=== PATIENT | female | born 1955 | race Caucasian/White ===

== ENCOUNTER → 2023-12-11 10:04 | Outpatient (REF) | payer MEDICARE, SELFPAY ==
[2023-12-11 11:17] LABS: % Basophils 0.7 % (0-2); % Eosinophils 1.7 % (0-6); % Immature Granulocytes 0.6 % (0-0.5); % Monocytes 6.1 % (1.7-9.3); % Neutrophils 76.9 % (42.2-75.2); Absolute Basophils 0.1 10^3/uL (0-0.2); Absolute Eosinophils 0.1 10^3/uL (0-0.7); Absolute Immature Granulocytes 0.1 10^3/uL (0-0.05); Absolute Lymphocytes 1.2 10^3/uL (1.2-3.4); Absolute Monocytes 0.5 10^3/uL (0.1-0.6); Absolute Neutrophils 6.4 10^3/uL (1.4-6.5); Hematocrit 36.6 % (37.0-47.0); Hemoglobin 11.9 g/dL (12.0-16.0); Mean Corp Hgb Conc. 32.5 g/dL (33.0-37.0); Mean Corpuscular Hgb 26.4 pg (27.0-31.0); Mean Corpuscular Volume 81.3 fL (81.0-99.0); Mean Platelet Volume 8.4 fL (7.4-10.4); Nucleated Red Blood Cells % 0 %; Platelet Count 403 10^3/uL (130-400); Red Cell Dist. Width 14.6 % (11.5-14.5); White Blood Cell Count 8.3 10^3/uL (4.8-10.8)
[2023-12-11 11:56] LABS: ALT (SGPT) 23 U/L (0-35); AST (SGOT) 29 U/L (14-36); Albumin 4.2 g/dl (3.5-5.0); Alkaline Phosphatase 89 U/L (38-126); Blood Urea Nitrogen 23 mg/dl (7-17); Calcium 9.6 mg/dl (8.4-10.2); Carbon Dioxide 25 mmol/L (22-30); Chloride 102 mmol/L (98-107); Glucose 75 mg/dl (70-99); Potassium 4.5 mmol/L (3.5-5.1); Sodium 138 mmol/L (135-145); Total Bilirubin 0.3 mg/dl (0.2-1.3); Total Protein 6.9 g/dl (6.3-8.2); eGFR > 60.00
[2023-12-11 12:02] LABS: Erythrocyte Sed Rate 40 mm/hour (0-20)
== END ==
LOC: REG 10:04
PROVIDERS: ATTENDING PHYSICIAN Internal Medicine Rheumatology; FAMILY PHYSICIAN Internal Medicine
DX: E55.9 Vitamin D deficiency, unspecified (principal); M19.011 Primary osteoarthritis, right shoulder; M19.041 Primary osteoarthritis, right hand; M43.22 Fusion of spine, cervical region; M51.36 Other intervertebral disc degeneration, lumbar region; M81.0 Age-related osteoporosis without current pathological fracture; M89.49 Other hypertrophic osteoarthropathy, multiple sites; Z51.81 Encounter for therapeutic drug level monitoring
CPT/HCPCS: 36415; 80053; 85025; 85652; 86140

== ENCOUNTER → 2024-01-22 09:48 | Outpatient (REF) | payer MEDICARE, SELFPAY ==
[2024-01-22 10:37] LABS: Hematocrit 35.5 % (37.0-47.0); Hemoglobin 11.7 g/dL (12.0-16.0); Mean Corpuscular Hgb 27.4 pg (27.0-31.0); Mean Corpuscular Volume 83.1 fL (81.0-99.0); Mean Platelet Volume 8.2 fL (7.4-10.4); Platelet Count 339 10^3/uL (130-400); Red Blood Cell Count 4.27 10^6/uL (4.20-5.40); Red Cell Dist. Width 14.7 % (11.5-14.5); White Blood Cell Count 6.9 10^3/uL (4.8-10.8)
[2024-01-22 11:11] LABS: % Eosinophils 4.8 % (0-6); % Immature Granulocytes 0.4 % (0-0.5); % Lymphocytes 28.6 % (20.5-51.1); % Monocytes 11.5 % (1.7-9.3); % Neutrophils 53.7 % (42.2-75.2); Absolute Basophils 0.1 10^3/uL (0-0.2); Absolute Eosinophils 0.3 10^3/uL (0-0.7); Absolute Monocytes 0.8 10^3/uL (0.1-0.6); Absolute Neutrophils 3.7 10^3/uL (1.4-6.5); Nucleated Red Blood Cells % 0 %
[2024-01-22 11:26] LABS: ALT (SGPT) 23 U/L (0-35); AST (SGOT) 30 U/L (14-36); Albumin 4.1 g/dl (3.5-5.0); Alkaline Phosphatase 84 U/L (38-126); Blood Urea Nitrogen 25 mg/dl (7-17); Calcium 9.7 mg/dl (8.4-10.2); Carbon Dioxide 26 mmol/L (22-30); Chloride 101 mmol/L (98-107); Glucose 76 mg/dl (70-99); HDL Cholesterol 81 mg/dl; LDL Cholesterol, Calculated 136 mg/dl; Potassium 4.8 mmol/L (3.5-5.1); Sodium 135 mmol/L (135-145); Total Bilirubin 0.4 mg/dl (0.2-1.3); Total Cholesterol 232 mg/dl (50-199); Total Protein 6.7 g/dl (6.3-8.2); Triglyceride 75 mg/dl (10-149); Very Low Density Lipoprotein 15 mg/dl (0-30); eGFR > 60.00
[2024-01-22 11:56] LABS: TSH Reflex To Free T4 2.33 uIU/ml (0.47-4.68)
== END ==
LOC: REG 09:48
PROVIDERS: ATTENDING PHYSICIAN Internal Medicine
DX: I10 Essential (primary) hypertension (principal); E87.1 Hypo-osmolality and hyponatremia; N17.9 Acute kidney failure, unspecified
CPT/HCPCS: 36415; 80053; 80061; 84443; 85025

== ENCOUNTER → 2024-02-05 10:06 | Outpatient (REF) | payer MEDICARE, SELFPAY | LOC: HWRAD 10:06 | PROVIDERS: ATTENDING PHYSICIAN Nurse Practitioner Adult Health; FAMILY PHYSICIAN Internal Medicine; REFERRING PHYSICIAN Internal Medicine Critical Care Medicine | DX: R91.1 Solitary pulmonary nodule (principal) | CPT/HCPCS: 71250 ==

== ENCOUNTER → 2024-04-11 09:47 | Outpatient (REF) | payer MEDICARE, SELFPAY | LOC: RAD 09:47 | PROVIDERS: ATTENDING PHYSICIAN Nurse Practitioner Family; FAMILY PHYSICIAN Internal Medicine | DX: R05.3 Chronic cough (principal) | CPT/HCPCS: 71046 ==

== ENCOUNTER → 2024-08-03 10:15 | Outpatient (REF) | payer MEDICARE, SELFPAY ==
[2024-08-03 11:18] LABS: % Basophils 0.8 % (0-2); % Eosinophils 4.3 % (0-6); % Immature Granulocytes 0.5 % (0-0.5); % Lymphocytes 21.9 % (20.5-51.1); % Monocytes 8.1 % (1.7-9.3); % Neutrophils 64.4 % (42.2-75.2); Absolute Basophils 0.1 10^3/uL (0-0.2); Absolute Eosinophils 0.3 10^3/uL (0-0.7); Absolute Lymphocytes 1.6 10^3/uL (1.2-3.4); Absolute Monocytes 0.6 10^3/uL (0.1-0.6); Absolute Neutrophils 4.8 10^3/uL (1.4-6.5); Hematocrit 39.8 % (37.0-47.0); Hemoglobin 12.8 g/dL (12.0-16.0); Mean Corp Hgb Conc. 32.2 g/dL (33.0-37.0); Mean Corpuscular Hgb 27.7 pg (27.0-31.0); Mean Corpuscular Volume 86.1 fL (81.0-99.0); Mean Platelet Volume 8.4 fL (7.4-10.4); Nucleated Red Blood Cells % 0 %; Platelet Count 412 10^3/uL (130-400); Red Blood Cell Count 4.62 10^6/uL (4.20-5.40); Red Cell Dist. Width 13.8 % (11.5-14.5); White Blood Cell Count 7.5 10^3/uL (4.8-10.8)
[2024-08-03 11:54] LABS: ALT (SGPT) 23 U/L (0-35); AST (SGOT) 26 U/L (14-36); Albumin 4.4 g/dl (3.5-5.0); Alkaline Phosphatase 87 U/L (38-126); Blood Urea Nitrogen 22 mg/dl (7-17); Calcium 9.9 mg/dl (8.4-10.2); Carbon Dioxide 28 mmol/L (22-30); Chloride 100 mmol/L (98-107); Glucose 79 mg/dl (70-99); Potassium 4.1 mmol/L (3.5-5.1); Sodium 138 mmol/L (135-145); Total Bilirubin 0.7 mg/dl (0.2-1.3); Total Protein 7.2 g/dl (6.3-8.2); eGFR > 60.00
[2024-08-03 14:19] LABS: Erythrocyte Sed Rate 23 mm/hour (0-20)
== END ==
LOC: RAD 10:15
PROVIDERS: ATTENDING PHYSICIAN Physician Assistant; FAMILY PHYSICIAN Internal Medicine
DX: M25.511 Pain in right shoulder (principal); M81.0 Age-related osteoporosis without current pathological fracture; M89.49 Other hypertrophic osteoarthropathy, multiple sites; Z51.81 Encounter for therapeutic drug level monitoring
CPT/HCPCS: 36415; 73030; 80053; 85025; 85652; 86140

== ENCOUNTER 2024-09-24 12:38 | Inpatient (IN) | payer MEDICARE, SELFPAY ==
[2024-09-24] VITALS (8 sets, daily range): BP systolic 79–124; BP diastolic 34–85; BMI 23.9; BMI 25.2
--- NOTE | 2024-09-24 11:03 | ED.GENMED ---
History of Present Illness
General
Chief Complaint: Change in Mental Status
Time Seen by Provider: 09/24/24 10:59
History of Present Illness
History of Present Illness:
68-year-old female with history of asthma, depression, hypertension presenting to the emergency department for concern of confusion. Patient lives self, however was talking to her sister over the phone, who voiced concerns that she seemed confused
and said that she sounded like her lips were very dry. Patient does note cough for the past few days, nonproductive. Denies any chest pain, does note some mild dyspnea. Denies any known sick contacts. Denies abdominal pain or vomiting. Denies
urinary complaints. Patient herself reports that she does not feel right. Denies any fall or trauma. Denies additional acute medical complaints
Past History
Past History
ED Past Medical History: Asthma, HTN, Hypercholesterolemia, Psychiatric (Depression, anxiety), Other (hypogammaglobulinemia) and Other (Sarcoidosis)
ED Past Surgical History: Orthopedic (cervical fusion) and Other (Mediastinoscopy)
Social History
Tobacco: Non-smoker
Alcohol: None
Drug: None
Personal:
Living: alone
Employment: Employed (Nurse)
Phy Exam
Physical Exam
Physical Exam:
General: No acute distress, dry mucous membranes
HEENT: protecting airway
Neck: appears supple
CV: Tachycardic, regular rhythm, no evidence of cyanosis
Resp: No accessory muscle use, active cough, rhonchorous breath sounds
Abd: Soft and non-distended, no tenderness to palpation
Extremities: No deformities, no swelling
Neuro: alert, no focal neurologic deficit. Tremulous
: deferred
Rectal: deferred
Psych: Normal affect
Skin: Intact
Course
Orders/Labs/Results
Orders:
Orders
09/24/24 10:56
Electrocardiogram (*1) Urgent
Reason for Study: Chest Pain
Cardiac Monitoring- Treatment ONCE
EKG- Treatment ONCE
O2 Therapy [RESP] Urgent
Titrate/Wean O2 to maintain O2 sat greater than (%): 90
Special Instructions: Maintain sats >/=90%
Pulse Ox/spot Check [RESP] Urgent
Quantity: 1
Special Instructions: ON ROOM AIR
09/24/24 11:00
0.9% Sodium Chloride 1000 ml [Nss] 1,000 ml IV BOLUS
09/24/24 11:01
CT Head W/o Iv Contrast Urgent
Comment:
Reason For Exam: change in mental
09/24/24 11:04
COVID-19 Antigen Urgent
Source: Nasal Swab
Complete Blood Count/With Diff Urgent
Comprehensive Metabolic Panel Urgent
Lactic Acid Urgent
Blood Culture Q30M
INNA Source: Blood/Venous
Specimen Description:
Blood Culture Q30M
INNA Source: Blood/Venous
Specimen Description:
Influenza A+B Rapid Molecular Urgent
INNA Source: Nasal Swab
Specimen Description:
09/24/24 11:05
CR Chest - 2 Views Urgent
Comment:
Reason For Exam: cough and fever
09/24/24 11:20
Urinalysis Reflex To Culture Urgent
Abnormal Lab Results
09/24/24
11:04
WBC 17.3 H 10^3/uL
(4.8-10.8)
RBC 3.98 L 10^6/uL
(4.20-5.40)
Hgb 10.8 L g/dL
(12.0-16.0)
Hct 32.5 L %
(37.0-47.0)
Plt Count 621 H 10^3/uL
(130-400)
Abs Immat Gran (auto) 0.5 H 10^3/uL
(0-0.05)
Absolute Neuts (auto) 14.7 H 10^3/uL
(1.4-6.5)
Absolute Lymphs (auto) 0.7 L 10^3/uL
(1.2-3.4)
Absolute Monos (auto) 1.3 H 10^3/uL
(0.1-0.6)
Immature Gran % 2.8 H %
(0-0.5)
Neutrophils % 84.9 H %
(42.2-75.2)
Lymphocytes % 4.3 L %
(20.5-51.1)
Sodium 132 L mmol/L
(135-145)
Chloride 94 L mmol/L
(98-107)
Glucose 161 H mg/dl
(70-99)
Calcium 8.2 L mg/dl
(8.4-10.2)
Alkaline Phosphatase 285 H U/L
(38-126)
Total Protein 5.9 L g/dl
(6.3-8.2)
Albumin 3.3 L g/dl
(3.5-5.0)
09/24/24 11:04
09/24/24 11:04
Vital Signs
Initial and Last Documented VS:
Initial Vital Signs
Temp
100.0 F
09/24/24 10:57
Last Documented Vital Signs
Temp Pulse Resp BP Pulse Ox
100.0 F 103 33 102/68 95
09/24/24 10:57 09/24/24 11:15 09/24/24 11:30 09/24/24 11:01 09/24/24 11:15
MDM/Problems Addressed
MDM/Problems Addressed:
68-year-old female with history of anxiety, depression, asthma, hypertension presenting for concern of confusion and cough with dryness to mouth. Vital signs are significant for fever, tachycardia, low blood pressure.
On exam patient is resting comfortably, no acute distress. Patient does appear very dry however and vital signs are meeting criteria for SIRS. Suspect underlying infection. Given patient's cough, possible COVID versus flu versus pneumonia. Will
plan for labs including lactic acid, blood cultures. Will obtain viral swabs and chest x-ray imaging. Patient also has some unintentional tremors. Per sister, has been more confused. This reason we will obtain CT brain imaging, however at this
time ultimately suspect metabolic component to confusion. Starting patient on IV fluids. Tylenol administered for fever
11:55 -patient's chest x-ray is consistent with a right-sided pneumonia. Viral swabs are negative. CT brain is negative. At this time suspect sepsis from pulmonary process. Blood pressure remained stable, normal lactic acid without concern for
septic shock. Starting antibiotics for community-acquired pneumonia plan for admission
*EKG
Interpreted by ED Provider?: Yes
EKG Intrepretation Date: 09/24/24
EKG Intrepretation Time: 11:08
Interpretation: abnormal
Heart Rate: 107
Rate: tachycardiac
Rhythm: sinus
[place]: normal axis
Interval: normal interval
QRS Pattern: normal QRS
Ischemia: no ischemia
*Critical Care Note
Total Time (30-74mins, 75-104mins- exclusive of procedures): Not Applicable
ED Attending Note
-
Portions of this chart may have been created with voice recognition software.� Occasional wrong word or��sound alike� substitutions may have occurred due to the inherent limitations of voice recognition software.
Discharge Plan
Departure
Prescriptions:
No Action
omeprazole 20 MG tablet,disintegrat, delay rel
20 mg PO DAILY
fluticasone furoate [Arnuity Ellipta] 200 MCG blister with device
1 puff IH R DAILY
doxepin 10 MG capsule
30 mg PO HS
duloxetine 60 MG capsule,delayed release(DR/EC)
60 mg PO BID
tramadol 50 MG tablet
50 mg PO Q4HPRN PRN (Reason: mild pain)
Patient Comments:
patient lasted picked up on 05/11/2020 #180
prednisone 5 MG tablet
5 mg PO DAILY
polyvinyl alcohol-povidon(PF) [Refresh Classic (PF)] 10 DROPS dropperette
1 drp BOTH EYES TIDPRN PRN (Reason: dry eyes)
acetaminophen 325 MG tablet
650 mg PO Q4HPRN PRN (Reason: low back pain from surgery)
cholecalciferol (vitamin D3) [Vitamin D3] 25 MCG tablet,chewable
1,000 unit PO DAILY
turmeric root extract 500 MG capsule
500 mg PO DAILY
kglstlov-htd-keeod acid-lutein 1 EACH tablet,chewable
1 tab PO DAILY
Bacillus coagulans [Probiotic (B. coagulans)] 1 EACH tablet,chewable
1 tab PO DAILY
clonazepam 1 MG tablet
1 mg PO TID@1100,1500,2000 Qty: 30 0RF
Referrals:
Emily Sotelo MD [Family Provider] -
Interventions
Interventions:
*Risk Screen - Suicide Last Done: 09/24/24 10:59
*General Assessment Last Done: 09/24/24 10:58
*Neglect/Abuse Screening Last Done: 09/24/24 10:59
*ED COVID-19 Vaccine History Last Done: 09/24/24 10:58
Discharge Date and Time
Print Language: WELSH
[2024-09-24] MEDS: NSS 1000 IV ×2 (11:07→17:35)
[2024-09-24 11:20] LABS: % Basophils 0.5 % (0-2); % Eosinophils 0.2 % (0-6); % Immature Granulocytes 2.8 % (0-0.5); % Lymphocytes 4.3 % (20.5-51.1); % Monocytes 7.3 % (1.7-9.3); % Neutrophils 84.9 % (42.2-75.2); Absolute Basophils 0.1 10^3/uL (0-0.2); Absolute Immature Granulocytes 0.5 10^3/uL (0-0.05); Absolute Lymphocytes 0.7 10^3/uL (1.2-3.4); Absolute Monocytes 1.3 10^3/uL (0.1-0.6); Absolute Neutrophils 14.7 10^3/uL (1.4-6.5); Hematocrit 32.5 % (37.0-47.0); Hemoglobin 10.8 g/dL (12.0-16.0); Mean Corp Hgb Conc. 33.2 g/dL (33.0-37.0); Mean Corpuscular Hgb 27.1 pg (27.0-31.0); Mean Corpuscular Volume 81.7 fL (81.0-99.0); Mean Platelet Volume 8.2 fL (7.4-10.4); Nucleated Red Blood Cells % 0 %; Platelet Count 621 10^3/uL (130-400); Red Blood Cell Count 3.98 10^6/uL (4.20-5.40); Red Cell Dist. Width 14.4 % (11.5-14.5); White Blood Cell Count 17.3 10^3/uL (4.8-10.8)
[2024-09-24 11:30] LABS: COVID-19 Antigen Negative (Negative)
[2024-09-24 11:31] LABS: Lactic Acid 1.2 mmol/L (0.7-2.0)
[2024-09-24 11:33] LABS: ALT (SGPT) 18 U/L (0-35); AST (SGOT) 19 U/L (14-36); Albumin 3.3 g/dl (3.5-5.0); Alkaline Phosphatase 285 U/L (38-126); Blood Urea Nitrogen 14 mg/dl (7-17); Calcium 8.2 mg/dl (8.4-10.2); Carbon Dioxide 27 mmol/L (22-30); Chloride 94 mmol/L (98-107); Estimated Creatinine Clearance 67 ml/min; Glucose 161 mg/dl (70-99); Potassium 3.7 mmol/L (3.5-5.1); Sodium 132 mmol/L (135-145); Total Bilirubin 0.5 mg/dl (0.2-1.3); Total Protein 5.9 g/dl (6.3-8.2); eGFR > 60.00
--- NOTE | 2024-09-24 12:19 | HPS.HSE ---
Addendum entered and electronically signed by Naveed Wagner MD 09/24/24 16:23:
Patient with bad sounding lungs as per RN. changed Mucinex to Robitussin DM. Added dexamethasone 4 mg every 12.
Original Note:
Family Physician
-
Family Physician: Emily Sotelo
Chief Complaint
-
cough
History of Present Illness
68-year-old female past medical history of sarcoidosis, cough variant asthma, hypertension, anxiety, chronic back pain, presenting with confusion. Patient lives by herself and was talking to her sister and patient was concerned that she seemed
confused and her lips were dry. She has cough for the past few days which is productive and chills. Denies chest pain. Has pain in her back with cough. Has some shortness of breath. Denies sick contacts. Denies abdominal pain or vomiting or
diarrhea.
She denies smoking or alcohol use.
Medical History
Past Medical History
Past Medical History: Reports Other (sarcoidosis, cough variant asthma, hypertension, anxiety, chronic back pain)
Past Surgical History: Reports None
Social History
Tobacco: Non-smoker
Alcohol: None
Drug: None
Family History
Family History: Not pertinent
Allergies / Home Medications
Allergies reflects when Allergies were last updated in [facility].
Home Medications with original date entered in [facility]
Allergy/Medication List:
Allergies
Allergy/AdvReac Type Severity Reaction Status Date / Time
amoxicillin trihydrate Allergy NAUSEA,VOMITTING, Verified 04/30/17 09:31
[From Augmentin] GI distress
azithromycin Allergy GI Verified 04/30/17 09:31
DISTRESS,
GI distress
ibuprofen Allergy GI distress Verified 04/30/17 09:31
levofloxacin Allergy GI UPSET Verified 04/30/17 09:31
naproxen Allergy Gi distress Verified 04/30/17 09:31
oxycodone HCl [From Percocet] Allergy NAUSEA,VOMITTING, Verified 04/30/17 09:31
GI distress
potassium clavulanate Allergy Nausea , Verified 04/30/17 09:31
[From Augmentin] vomiting,
GI distress
Sulfa (Sulfonamide Allergy Nausea / Verified 04/30/17 09:31
Antibiotics) Vomiting
CLAVULANIC ACID Allergy NAUSEA,STOMACH Uncoded 04/30/17 09:31
PAIN
seasonal Allergy chest Uncoded 04/30/17 09:31
tightness
and
coughing
Home Medications
omeprazole 20 mg delayed release,disintegrating tablet 20 mg PO DAILY Gastrointestinal issue 04/30/17
Bacillus coagulans 250 million cell chewable tablet (Probiotic (B. coagulans)) 1 tab PO DAILY Supplement 06/12/20
acetaminophen 325 mg tablet 650 mg PO Q4HPRN PRN low back pain from surgery 06/12/20
cholecalciferol (vitamin D3) 25 mcg (1,000 unit) chewable tablet (Vitamin D3) 1,000 unit PO DAILY Supplement 06/12/20
doxepin 10 mg capsule 30 mg PO HS Mental Health/Anxiety 06/12/20
duloxetine 60 mg capsule,delayed release 60 mg PO BID Mental Health/Anxiety 06/12/20
fluticasone furoate 200 mcg/actuation blister powder for inhalation (Arnuity Ellipta) 1 puff IH R DAILY ASTHMA 06/12/20
xsozwevbvajg-ghpk-meqmv acid 200 mcg-lutein 137.5 mcg chewable tablet 1 tab PO DAILY Supplement 06/12/20
polyvinyl alcohol-povidone (PF) 1.4 %-0.6 % eye drops in a dropperette (Refresh Classic (PF)) 1 drp BOTH EYES TIDPRN PRN dry eyes 06/12/20
prednisone 5 mg tablet 5 mg PO DAILY INFLAMMATION 06/12/20
tramadol 50 mg tablet 50 mg PO Q4HPRN PRN mild pain 06/12/20
turmeric root extract 500 mg capsule 500 mg PO DAILY Supplement 06/12/20
clonazepam 1 mg tablet 1 mg PO TID@1100,1500,2000 #30 tabs 06/14/20
Review of Systems
-
History Source: Patient
A 12 point ROS was completed and negative except as noted: Yes
Constitutional: Reports No Symptoms
EENT: Reports No Symptoms
Respiratory: Reports See HPI
Cardiac: Reports No Symptoms
Abdomen/GI: Reports No Symptoms
: Reports No Symptoms
Musculoskeletal: Reports No Symptoms
Skin: Reports No Symptoms
Neurological: Reports No Symptoms
Endocrine: Reports No Symptoms
Hematologic/Lymphatic: Reports No Symptoms
Psych: Reports No Symptoms
Physical Exam
Vital Signs
Vital Signs
Temp Pulse Resp BP Pulse Ox
100.0 F 103 33 102/68 95
09/24/24 10:57 09/24/24 11:15 09/24/24 11:30 09/24/24 11:01 09/24/24 11:15
Physical Exam
General: Well Developed, Well Nourished and No Apparent Distress
HEENT: NormoCephalic, Moist mucous membranes and Atraumatic
Respiratory: Other (-Rhonchi right lower lobe)
Cardiac: S1/S2 and Regular Rhythm; No Murmur or Rub
GI: Soft, Non Tender, Non Distended and Normal Bowel Sounds; No Organomegaly
Rectal: Deferred by Provider
Musculoskeletal: No Clubbing, No Cyanosis and No Edema
Skin: No Rash
Neuro: Nonfocal/grossly intact
Laboratory Results
-
09/24/24 11:04
09/24/24 11:04
Laboratory Results
Lactic Acid 1.2 mmol/L (0.7-2.0) 09/24/24 11:04
Total Bilirubin 0.5 mg/dl (0.2-1.3) 09/24/24 11:04
AST 19 U/L (14-36) 09/24/24 11:04
ALT 18 U/L (0-35) 09/24/24 11:04
Alkaline Phosphatase 285 U/L (38-126) H 09/24/24 11:04
Data Reviewed
-
Lab Data: Labs Reviewed by me
Old Records: Reviewed
Impression/Plan
-
IMPRESSION:
PLAN:
# Sepsis (leukocytosis, tachycardia) secondary to right basilar pneumonia
-Patient initially hypotensive 79/59
- Temperature of 100
-COVID and flu negative
-Chest x-ray shows right basilar pneumonia, some possible small right pleural effusion
-Check sputum culture
- Blood cultures pending
- IV fluids
- Ceftriaxone/doxycycline
- Mucinex
#Cough variant asthma
-Rhonchi right lower lobe
- Patient takes long-acting inhaler and albuterol as needed
- DuoNebs as needed every 6 hours
-may need further steroids if no full response to ABx
Sarcoidosis
- Continue prednisone
Essential hypertension
Anxiety
- Continue duloxetine, doxepin, clonazepam
Chronic back pain
- Continue tramadol
Full code
DVT prophylaxis�heparin
Regular diet
[2024-09-24] MEDS: VIBRAMYCIN 100 MG PO ×2 (12:25→20:19)
[2024-09-24] MEDS: ROCEPHIN 1000 MG IV (12:26)
[2024-09-24] MEDS: DUONEB 3 ML INH ×2 (16:08→19:11)
[2024-09-24] MEDS: KLONOPIN 0.5 MG PO (17:22)
[2024-09-24] MEDS: ROBITUSSIN DM 10 ML PO (17:22)
[2024-09-24] MEDS: DECADRON 4 MG IV (17:35)
[2024-09-24] MEDS: ADVAIR HFA 115/21 MCG INHALER 2 PUFF INH (19:08)
[2024-09-24] MEDS: HEPARIN 5000 UNITS SC (20:19)
[2024-09-24] MEDS: CYMBALTA DELAYED RELEASE 60 MG PO (20:19)
--- NOTE | 2024-09-24 20:43 | W.PN.UPDATE ---
Update Note
Progress Note Update
As per daughter patient apparently allergic to dexamethasone because she developed renal failure from it 4 years ago. Patient without any allergic reaction and actually feeling better on dexamethasone given. Will change dexamethasone to
methylprednisolone.
Daughter was also concerned that patient has been using her Klonopin too often has episodes of forgetting how her house got so messy. Patient also forgetting what she is talking about during conversation with her as per nurse.
Holding Klonopin and as needed Flexeril.
[2024-09-25] MEDS: NSS 1000 IV ×3 (02:36→20:47)
[2024-09-25] MEDS: ROBITUSSIN DM 10 ML PO ×3 (02:36→18:19)
[2024-09-25 07:05] VITALS: BP 109/65
[2024-09-25 07:17] LABS: % Basophils 0.2 % (0-2); % Immature Granulocytes 2.4 % (0-0.5); % Lymphocytes 4.1 % (20.5-51.1); % Monocytes 2.8 % (1.7-9.3); % Neutrophils 90.5 % (42.2-75.2); Absolute Immature Granulocytes 0.4 10^3/uL (0-0.05); Absolute Lymphocytes 0.6 10^3/uL (1.2-3.4); Absolute Monocytes 0.4 10^3/uL (0.1-0.6); Absolute Neutrophils 13.8 10^3/uL (1.4-6.5); Hematocrit 28.2 % (37.0-47.0); Hemoglobin 9.4 g/dL (12.0-16.0); Mean Corp Hgb Conc. 33.3 g/dL (33.0-37.0); Mean Corpuscular Hgb 27.5 pg (27.0-31.0); Mean Corpuscular Volume 82.5 fL (81.0-99.0); Mean Platelet Volume 8.7 fL (7.4-10.4); Nucleated Red Blood Cells % 0 %; Platelet Count 661 10^3/uL (130-400); Red Blood Cell Count 3.42 10^6/uL (4.20-5.40); Red Cell Dist. Width 14.5 % (11.5-14.5); White Blood Cell Count 15.2 10^3/uL (4.8-10.8)
[2024-09-25] MEDS: DUONEB 3 ML INH (07:32)
[2024-09-25] MEDS: ADVAIR HFA 115/21 MCG INHALER 2 PUFF INH ×2 (07:33→19:43)
[2024-09-25 07:48] LABS: ALT (SGPT) 17 U/L (0-35); AST (SGOT) 18 U/L (14-36); Albumin 2.9 g/dl (3.5-5.0); Alkaline Phosphatase 244 U/L (38-126); Blood Urea Nitrogen 12 mg/dl (7-17); Calcium 7.7 mg/dl (8.4-10.2); Carbon Dioxide 24 mmol/L (22-30); Chloride 101 mmol/L (98-107); Estimated Creatinine Clearance 72 ml/min; Glucose 159 mg/dl (70-99); Potassium 4.5 mmol/L (3.5-5.1); Sodium 136 mmol/L (135-145); Total Bilirubin 0.4 mg/dl (0.2-1.3); Total Protein 5.3 g/dl (6.3-8.2); eGFR > 60.00
[2024-09-25] MEDS: VITAMIN D3 (cholecalciferol) 25 MCG PO (08:28)
[2024-09-25] MEDS: VIBRAMYCIN 100 MG PO ×2 (08:28→20:35)
[2024-09-25] MEDS: HEPARIN 5000 UNITS SC ×2 (08:29→20:36)
[2024-09-25] MEDS: CYMBALTA DELAYED RELEASE 60 MG PO ×2 (08:31→20:35)
[2024-09-25] MEDS: SOLU-MEDROL PF 40 MG IV ×2 (08:31→20:42)
--- NOTE | 2024-09-25 10:41 | W.PN.HOSP.TC ---
Today's Communication/Plan
-
cont abx
cont IVF
add tessalon
consider pulm consult
Assessment / Plan
Assessment / Plan
pt is a 68 year old female
Sepsis (leukocytosis, tachycardia) POA-- due to right basilar pneumonia--with hypotension (79/59 on admission) responded to IVF (current BP 109/65)--COVID and flu negative--Chest x-ray shows right basilar pneumonia, some possible small right pleural
effusion--if able, check sputum culture--consider pulm consult--cont IVF/ceftriaxone/doxy/medrol --cough meds
Cough variant asthma--Rhonchi right lower lobe--Patient takes long-acting inhaler and albuterol as needed--DuoNebs as needed every 6 hours
Sarcoidosis--prednisone on hold, methylprednisolone 40mg IV Q12H ordered on admission
Essential hypertension--meds as able
Anxiety--Continue duloxetine, doxepin, clonazepam
Chronic back pain- Continue tramadol
code status--Full code
DVT proph--sc heparin
Anticipated Discharge: 24 - 48 hours
Subjective/Interval History
-
Date of Service: September 25, 2024
pt doing OK--still coughing--no O2 requirements
Objective Data
-
Labs:
Laboratory Results
09/25/24
06:19
WBC 15.2 H
Hgb 9.4 L
Hct 28.2 L
Plt Count 661 H
Sodium 136
Potassium 4.5
Chloride 101
Carbon Dioxide 24
BUN 12
Creatinine 0.5 L
Glucose 159 H
Calcium 7.7 L
Total Bilirubin 0.4
AST 18
ALT 17
Alkaline Phosphatase 244 H
Vital Signs:
max temp for 24 hours
09/24/24
10:57
Temp 100.0 F
Vital Signs
Temp Pulse Resp BP Pulse Ox
98.9 F 89 20 109/65 96
09/25/24 07:05 09/25/24 07:36 09/25/24 07:36 09/25/24 07:05 09/25/24 07:36
Review of Systems
-
All other systems: Reviewed and negative
Respiratory: Reports Cough
Physical Exam
-
General: Well Developed, Well Nourished and No Apparent Distress
HEENT: Normocephalic and Atraumatic; Negative Oxygen
Respiratory: Rhonchi (right lower lobe); Negative Wheezes
Cardiac: Regular Rhythm and S1/S2; Negative Murmur
GI: Soft, Nontender, Nondistended and Normal Bowel Sounds
Musculoskeletal: No Clubbing, No Cyanosis and No Edema
Skin: Warm
Neuro: Awake and Alert
Psych: Calm
[2024-09-25] MEDS: ROCEPHIN 1000 MG IV (11:59)
[2024-09-25] MEDS: STERILE WATER FOR INJECTION 10 ML IV (11:59)
[2024-09-25 15:05] VITALS: BP 105/61
[2024-09-25 15:32] LABS: Urine Albumin 2+ (Neg - Trace); Urine Bilirubin Negative (Negative); Urine Character Slightly Cloudy (Clear); Urine Color Yellow; Urine Glucose Negative (Negative); Urine Ketone 2+ (Negative); Urine Leukocyte Negative (Negative); Urine Nitrite Negative (Negative); Urine Occult Blood 1+ (Negative); Urine Specific Gravity 1.015 (<1.030); Urine Urobilinogen Negative (Neg - 1+)
[2024-09-25 15:46] LABS: Urine Bacteria Few (Negative); Urine Red Blood Cell 0-2 /HPF (0-2)
[2024-09-25] MEDS: TESSALON PERLES 200 MG PO ×2 (17:03→20:43)
[2024-09-25 23:00] VITALS: BP 120/77
[2024-09-26] MEDS: ROBITUSSIN DM 10 ML PO ×3 (00:36→14:11)
[2024-09-26] MEDS: MELATONIN 5 MG PO (00:36)
[2024-09-26 07:05] VITALS: BP 118/78
[2024-09-26] MEDS: ADVAIR HFA 115/21 MCG INHALER 2 PUFF INH ×2 (07:39→19:30)
[2024-09-26] MEDS: NSS 1000 IV (08:00)
[2024-09-26 08:28] LABS: Hematocrit 28.6 % (37.0-47.0); Hemoglobin 9.3 g/dL (12.0-16.0); Mean Corp Hgb Conc. 32.5 g/dL (33.0-37.0); Mean Corpuscular Volume 82.9 fL (81.0-99.0); Mean Platelet Volume 8.6 fL (7.4-10.4); Platelet Count 781 10^3/uL (130-400); Red Blood Cell Count 3.45 10^6/uL (4.20-5.40); Red Cell Dist. Width 14.8 % (11.5-14.5); White Blood Cell Count 15.5 10^3/uL (4.8-10.8)
[2024-09-26 08:50] LABS: Blood Urea Nitrogen 13 mg/dl (7-17); Calcium 7.8 mg/dl (8.4-10.2); Carbon Dioxide 23 mmol/L (22-30); Chloride 105 mmol/L (98-107); Estimated Creatinine Clearance 72 ml/min; Glucose 113 mg/dl (70-99); Potassium 4.9 mmol/L (3.5-5.1); Sodium 138 mmol/L (135-145); eGFR > 60.00
[2024-09-26] MEDS: VITAMIN D3 (cholecalciferol) 25 MCG PO (08:52)
[2024-09-26] MEDS: TESSALON PERLES 200 MG PO ×3 (08:52→21:32)
[2024-09-26] MEDS: VIBRAMYCIN 100 MG PO ×2 (08:52→21:31)
[2024-09-26] MEDS: HEPARIN 5000 UNITS SC ×2 (08:53→21:30)
[2024-09-26] MEDS: CYMBALTA DELAYED RELEASE 60 MG PO ×2 (08:57→21:30)
[2024-09-26] MEDS: SOLU-MEDROL PF 40 MG IV (09:02)
[2024-09-26 09:58] LABS: Iron 51 ug/dl (37-170)
[2024-09-26 10:07] LABS: Percent Saturation 24 % (20-50); Total Iron Binding Capacity 205 ug/dl (265-497)
[2024-09-26] MEDS: ROCEPHIN 1000 MG IV (11:50)
[2024-09-26] MEDS: STERILE WATER FOR INJECTION 10 ML IV (11:52)
[2024-09-26 14:58] LABS: Vitamin B12 > 1000 pg/ml (239-931)
[2024-09-26 15:05] VITALS: BP 132/71
--- NOTE | 2024-09-26 15:39 | CM ---
Patient seen at bedside
IA completed
Lives alone in 1st floor apartment
PLOF: independent with cane
has access to [facility]
DME: Cane, shower chair, walker
[facility] in past, states had rehab in past does not recall facility
PCP: Emily Sotelo
Pharmacy: [facility], [id number], [place]
PLAN: home, currently no needs, CM to continue to follow
--- NOTE | 2024-09-26 16:52 | PTCARENOTE ---
patient with frequent harsh senior vice president cough. PRN Robitussin with some relief, tolerating diet, independent to BR. vss, will continue to monitor.
--- NOTE | 2024-09-26 18:04 | W.PN.HOSP.TC ---
Today's Communication/Plan
-
Restart Klonopin
Back to baseline
Pulm eval Home O2 eval
Assessment / Plan
Assessment / Plan
68-year-old female with cough confusion
[facility]: S1-S2 normal
Chest: few scattered rales
Abdomen: Soft, NT / Bowel sounds present
Extremities: No edema, normal pulses
# Sepsis secondary to right basilar pneumonia
Patient was also hypotensive transiently possibly shock from sepsis, responsive to fluids.
Sputum culture and blood culture pending
Ceftriaxone doxycycline
Mucinex
Oxygen as needed - Not on it now
Influenza negative. COVID screen negative
Pulmonary evaluation
# TME secondary to above. Head CT with no acute changes. Back to baseline
# History of cough variant asthma/chronic bronchitis-Continue DuoNebs
# Anemia
# Thrombocytosis-likely secondary to infection
# Sarcoidosis-on prednisone as outpatient-continue
# Essential hypertension-on hydrochlorothiazide as outpatient
# Mitral valve prolapse
# Anxiety depression-/-continue duloxetine, doxepin and Klonopin restarted
# Common variable immunodeficiency-gets IgG injections. She stated that she forgot to take it in the past month. Aware that she needs to take it regularly
# Chronic back pain-L3-4 hemilaminectomy and diskectomy. History of C2-C7 fusion- On Tramadol
# Hypoalbuminemia
# Lifelong non-smoker
# DVT prophylaxis-subcutaneous heparin
# Full code
Anticipated Discharge: Within 24 hours
Subjective/Interval History
-
Date of Service: September 26, 2024
Objective Data
-
Labs:
Laboratory Results
09/26/24 09/26/24
06:58 06:59
WBC 15.5 H
Hgb 9.3 L
Hct 28.6 L
Plt Count 781 H
Sodium 138
Potassium 4.9
Chloride 105
Carbon Dioxide 23
BUN 13
Creatinine 0.5 L
Glucose 113 H
Calcium 7.8 L
Vital Signs:
Vital Signs
Temp Pulse Resp BP Pulse Ox
98.6 F 100 19 132/71 97
09/26/24 15:05 09/26/24 15:05 09/26/24 15:05 09/26/24 15:05 09/26/24 15:05
I&O
09/25/24 09/26/24 09/27/24
06:59 06:59 06:59
Intake Total 1560 / 1560 2820 / 2820
Balance 1560 / 1560 2820 / 2820
[2024-09-26] MEDS: NSS IV (18:05)
[2024-09-26] MEDS: SOLU-MEDROL PF 20 MG IV (21:30)
[2024-09-26] MEDS: KLONOPIN 0.5 MG PO (21:30)
[2024-09-26 23:15] VITALS: BP 141/86
[2024-09-27] MEDS: ROBITUSSIN DM 10 ML PO ×4 (02:01→22:13)
[2024-09-27] MEDS: KLONOPIN 0.5 MG PO ×3 (04:42→20:16)
[2024-09-27 07:23] VITALS: BP 157/93
[2024-09-27] MEDS: ADVAIR HFA 115/21 MCG INHALER 2 PUFF INH ×2 (07:40→19:31)
[2024-09-27] MEDS: CYMBALTA DELAYED RELEASE 60 MG PO ×2 (08:45→20:16)
[2024-09-27] MEDS: VITAMIN D3 (cholecalciferol) 25 MCG PO (08:45)
[2024-09-27] MEDS: HEPARIN 5000 UNITS SC ×2 (08:45→20:16)
[2024-09-27] MEDS: VIBRAMYCIN 100 MG PO ×2 (08:45→20:16)
[2024-09-27] MEDS: TESSALON PERLES 200 MG PO ×3 (08:45→21:24)
[2024-09-27] MEDS: SOLU-MEDROL PF 20 MG IV ×2 (08:46→20:17)
--- NOTE | 2024-09-27 09:19 | CON.PUL ---
Consultation
Consultation Request
Date/Time Consultation Requested: 09/27/24
Date/Time Consultation Performed: 09/27/24
Performing Provider: June
Reason for Consultation: PNA
Medical History
-
History of Present Illness:
Patient is a 68-year-old female with previous history of sarcoidosis, cough variant asthma, hypertension presenting with confusion. She has noted coughing for the past few days which was productive and noted fever and chills. Chest x-ray on
admission demonstrating right lower lobe pneumonia, she was admitted on 09/24/2024.
She does follow in our office for history of asthma and sarcoid. She had been well-controlled prior to this. She does not have frequent exacerbations of her asthma requiring prednisone. She does take 5 mg of prednisone chronically for her sarcoid.
Past Medical History
Past Medical History: Other (see list below)
Social History
Tobacco: Non-smoker
Alcohol: None
Drug: None
Family History
Family History: Reviewed & Not Pertinent
Allergies / Home Medications
Allergies
Allergy/AdvReac Type Severity Reaction Status Date / Time
amoxicillin trihydrate Allergy NAUSEA,VOMITTING, Verified 04/30/17 09:31
[From Augmentin] GI distress
azithromycin Allergy GI Verified 04/30/17 09:31
DISTRESS,
GI distress
dexamethasone Allergy renal Verified 09/24/24 20:15
failure 5
yrs ago
from med
ibuprofen Allergy GI distress Verified 04/30/17 09:31
levofloxacin Allergy GI UPSET Verified 04/30/17 09:31
naproxen Allergy Gi distress Verified 04/30/17 09:31
oxycodone HCl [From Percocet] Allergy NAUSEA,VOMITTING, Verified 04/30/17 09:31
GI distress
pollen extracts Allergy chest Verified 09/26/24 18:22
tightness
and
coughing
potassium clavulanate Allergy Nausea , Verified 04/30/17 09:31
[From Augmentin] vomiting,
GI distress
Sulfa (Sulfonamide Allergy Nausea / Verified 04/30/17 09:31
Antibiotics) Vomiting
tree and shrub pollen Allergy PINE Verified 09/26/24 18:22
TREES-chest
tightness
and
coughing
Home Medications
�Medication �Instructions �Recorded �Confirmed �Last Taken �Type
duloxetine 60 mg capsule,delayed 60 mg PO BID Mental Health/Anxiety 06/12/20 09/24/24 09/24/24 History
release
fluticasone furoate 200 1 puff IH R DAILY ASTHMA 06/12/20 09/24/24 09/23/24 History
mcg/actuation blister powder for
inhalation (Arnuity Ellipta)
prednisone 5 mg tablet 5 mg PO DAILY inflammation 06/12/20 09/24/24 09/23/24 History
cholecalciferol (vitamin D3) 25 25 mcg PO DAILY Supplement 09/24/24 09/24/24 09/23/24 History
mcg (1,000 unit) tablet
clonazepam 0.5 mg tablet 0.5 mg PO TID Mental Health/Anxiety 09/24/24 09/24/24 09/24/24 History
cyclobenzaprine 10 mg tablet 10 mg PO TIDPRN PRN muscle spasm 09/24/24 09/24/24 09/23/24 History
denosumab 60 mg/mL subcutaneous 60 mg SC [id number] osteoporosis 09/24/24 09/24/24 Unknown History
syringe (Prolia)
fluticasone propionate 115 2 puff inhalation R BID 09/24/24 09/24/24 09/23/24 History
mcg-salmeterol 21 mcg/actuation Lung/Breathing Issues
HFA inhaler (Advair HFA)
hydrochlorothiazide 25 mg tablet 25 mg PO DAILY Blood Pressure 09/24/24 09/24/24 09/23/24 History
levalbuterol HCl 1.25 mg/3 mL 1.25 mg inhalation R [id number] PRN sob 09/24/24 09/24/24 Unknown History
solution for nebulization
Review of Systems
-
History Source: Patient
All other systems: Negative unless noted
Vitals / Labs / Diagnostic Testing
Vital Signs
Temp Pulse Resp BP Pulse Ox
98.2 F 104 16 157/93 97
09/27/24 07:23 09/27/24 07:59 09/27/24 07:59 09/27/24 07:23 09/27/24 07:59
Lab Data
09/26/24 06:59
09/26/24 06:58
Microbiology
09/24/24 11:04 Blood/Venous Blood Culture - Preliminary
No Growth in 48 hours- Final report to follow
09/24/24 11:04 Blood/Venous Blood Culture - Preliminary
No Growth in 48 hours- Final report to follow
09/24/24 11:04 Nasal Swab Influenza Types A & B ([facility]) - Final
Negative for Influenza A & B, NAAT
Negative results must be combined with clinical observations
and patient history.
Nucleic Acid Amplification test (NAAT)performed on the
[employer] platform.
Diagnostic Testing:
Physical Exam
-
HEENT: Normocephalic, Anicteric and Moist Mucous Membranes
Cardiovascular: S1/S2 and Regular Rhythm
Respiratory: Rhonchi and Non-Labored Respirations
GI: Soft, Non Distended and Non Tender
Neurology: Awake, Alert, Oriented and No Motor Deficits
Skin: Warm, Dry and Good Color
General: Comfortable, Good Appetite and Other (NAD)
Assessment
-
Patient is a 68-year-old female with previous history of sarcoidosis, cough variant asthma, hypertension presenting with confusion. She has noted coughing for the past few days which was productive and noted fever and chills. Chest x-ray on
admission demonstrating right lower lobe pneumonia, she was admitted on 09/24/2024. She does follow in our office for history of asthma and sarcoid. She had been well-controlled prior to this. She does not have frequent exacerbations of her asthma
requiring prednisone. She does take 5 mg of prednisone chronically for her sarcoid. We are consulted for evaluation.
RLL PNA
Leukocytosis
Anemia
Thrombocytosis
Hypocalcemia
Mildly elevated LFTs
Conditions present FIRM ADMINISTRATOR
Essential (primary) hypertension
Common variable immunodeficiency
Recurrent sinusitis
Immunosuppression due to drug therapy, chronic prednisone
Asthma, moderate persistent
Follows with Dr Valente, maintained on Advair HFA
Sarcoidosis, with chronic pulmonary nodules/calcified lymphadenopathy
Anxiety
Chronic cough
Plan
No oxygen was needed on admission, currently saturating >90% on RA
Not known to be on home O2
Prior history of lung disease is noted including asthma, sarcoidosis, on chronic prednisone
Home regiment is resumed, tolerating
Suspect patient has right lower lobe pneumonia
CXR/CT obtained indicating basilar disease
Other imaging reviewed in past and negative, she has chronic nodules and calcified lymphadenopathy from her sarcoid
Repeat chest x-ray today to evaluate for resolution of pneumonia
Continue airway clearance, she notes that her symptoms are improving
Acapella, IS
Sputum culture unable to be obtained
She is on CAP coverage
No prior ECHO results are available for review
She had prior stress testing in 2017 that was low risk
May be beneficial to obtain baseline testing to rule out pulmonary hypertension, this can be done as an outpatient
She otherwise has no cardiac complaints
Will need outpatient pulmonary evaluation in our office for PFTs and 6MWT
Reviewed with patient
We will arrange follow-up visit
Discharge planning otherwise in the next 24 hours if stable
We will follow
Diagnostic Data
Chest X-Ray: 09/27/24- 1. Large right middle and lower lobe airspace consolidations which have decreased in size and density since 09/24/2024 (probably right lower and middle lobe pneumonia).
2. Small right parapneumonic pleural effusion.
3. Many calcified mediastinal and bilateral hilar lymph nodes which appear unchanged.
4. Previous extensive bilateral posterior instrumentation in the thoracic and lumbar spine.
5. Previous bilateral posterior instrumentation in the lower cervical spine.
09/24/24- Right basilar consolidative pneumonia. Possible small right pleural fluid as well.
04/11/24- Unremarkable and stable chest
CT Scan: CHEST 02/05/24- 1. Redemonstration of scattered small bilateral pulmonary nodules in a distribution suggestive of sequelae of sarcoidosis, overall minimally progressed from prior exam 01/16/2022.
CHEST 01/16/22- . A few peribronchial pulmonary nodules and calcified mediastinal and bilateral hilar lymph nodes are most compatible with the sequela of sarcoidosis. A 5 mm pulmonary nodule in the right upper lobe has slightly increased compared to
the prior chest CT from 2010. Smaller nodules in the left upper lobe and left lower lobe are unchanged.
2. Suspected gallbladder sludge and/or noncalcified cholelithiasis.
Echo: Nuc Stress 2017- EF >75%, small fixed defect in apical segment consistent with soft tissue attenuation, overall low risk
PFT's:
Reports and relevant images were personally reviewed.
Total time spent on this consultation __81__ minutes which includes review of history, physical exam, medications, laboratory data, personal review of imaging, extensive review of outpatient records, discussion with care team and respiratory therapy.
[2024-09-27] MEDS: ROCEPHIN 1000 MG IV (12:04)
[2024-09-27] MEDS: STERILE WATER FOR INJECTION 10 ML IV (12:05)
--- NOTE | 2024-09-27 14:29 | W.PN.HOSP.TC ---
Addendum entered and electronically signed by Jose Keenan MD 09/27/24 15:38:
Spoke to sister ( POA) and updated.
Sister says when she visits pt her room can be a mess and she doesnt know how it happened.
She is very secretive about her meds.
Sister requested psychiatric evaluation. Patient supposed to follow-up with [facility] but she is not sure if she is.
Patient's daughter has disowned her and son lives 45 minutes away but has not seen her in 5 years
Sister visits her 4 times a year and helps her pay her bills and also arrange for help.
Original Note:
Today's Communication/Plan
-
check ECHO
Steroids
Home O2 eval noted- NO need for O2
Assessment / Plan
Assessment / Plan
68-year-old female with cough confusion
CVS: S1-S2 normal
Chest: few scattered rales
Abdomen: Soft, NT / Bowel sounds present
Extremities: No edema, normal pulses
# Sepsis secondary to right basilar pneumonia
Patient was also hypotensive transiently possibly shock from sepsis, responsive to fluids.
Sputum culture and blood culture pending
Ceftriaxone doxycycline
Mucinex
Oxygen as needed - Not on it now
Influenza negative. COVID screen negative
Pulmonary evaluation
# TME secondary to above. Head CT with no acute changes. Back to baseline
# History of cough variant asthma/chronic bronchitis-Continue DuoNebs
# Anemia
# Thrombocytosis-likely secondary to infection. Needs hematology follow up as OP
# Sarcoidosis-on prednisone as outpatient-continue
# Essential hypertension-on hydrochlorothiazide as outpatient
# Mitral valve prolapse
# Anxiety depression-/-continue duloxetine, doxepin and Klonopin restarted
# Common variable immunodeficiency-gets IgG injections. She stated that she forgot to take it in the past month. Aware that she needs to take it regularly
# Chronic back pain-L3-4 hemilaminectomy and diskectomy. History of C2-C7 fusion- On Tramadol
# Hypoalbuminemia
# Lifelong non-smoker
# DVT prophylaxis-subcutaneous heparin
# Full code
Left message for POA
D/W RN
D/W Pulm
Anticipated Discharge: Within 24 hours
Subjective/Interval History
-
Date of Service: September 27, 2024
Objective Data
-
Vital Signs:
Vital Signs
Temp Pulse Resp BP Pulse Ox
98.2 F 104 16 157/93 97
09/27/24 07:23 09/27/24 07:59 09/27/24 07:59 09/27/24 07:23 09/27/24 07:59
I&O
09/26/24 09/27/24 09/28/24
06:59 06:59 06:59
Intake Total 1560 / 1560 2820 / 2820
Balance 1560 / 1560 2820 / 2820
[2024-09-27 16:15] VITALS: BP 149/95
--- NOTE | 2024-09-27 16:25 | CM ---
CM following for discharge planning needs and met with Emily today; she was not very talkative.
Emily is ambulatory in the room at this time; did not want to discuss her home set up or how she has been managing at home alone.
CM to follow up again tomorrow.
Pharmacy: [facility] in [place]
PCP: Emily Sotelo
[2024-09-27 23:13] VITALS: BP 128/80
[2024-09-28] MEDS: KLONOPIN 0.5 MG PO ×2 (04:59→19:21)
[2024-09-28] MEDS: ROBITUSSIN DM 10 ML PO (05:27)
[2024-09-28 07:10] VITALS: BP 147/84
[2024-09-28] MEDS: ADVAIR HFA 115/21 MCG INHALER 2 PUFF INH ×2 (07:26→19:44)
[2024-09-28] MEDS: TESSALON PERLES 200 MG PO (08:15)
[2024-09-28] MEDS: CYMBALTA DELAYED RELEASE 60 MG PO ×2 (08:15→19:20)
[2024-09-28] MEDS: VITAMIN D3 (cholecalciferol) 25 MCG PO (08:15)
[2024-09-28] MEDS: HEPARIN 5000 UNITS SC ×2 (08:15→19:20)
[2024-09-28] MEDS: VIBRAMYCIN 100 MG PO ×2 (08:15→19:20)
[2024-09-28] MEDS: SOLU-MEDROL PF 20 MG IV (08:16)
--- NOTE | 2024-09-28 09:06 | W.PN.PUL3 ---
Today's Communication / Plan
-
CXR reviewed and improving, she feels ready to go home
Transitioned IV steroids to PO prednisone which she can taper back to her home dose
Change albuterol to TID which she should continue at home until improved
Added mucinex 600mg BID which she should continue at home as well
Complete abx for full course
We will arrange OP FU in 3-4 weeks
Discharge planning per team today
Assessment
-
Patient is a 68-year-old female with previous history of sarcoidosis, cough variant asthma, hypertension presenting with confusion. She has noted coughing for the past few days which was productive and noted fever and chills. Chest x-ray on
admission demonstrating right lower lobe pneumonia, she was admitted on 09/24/2024. She does follow in our office for history of asthma and sarcoid. She had been well-controlled prior to this. She does not have frequent exacerbations of her asthma
requiring prednisone. She does take 5 mg of prednisone chronically for her sarcoid. We are consulted for evaluation.
RLL PNA
Leukocytosis
Anemia
Thrombocytosis
Hypocalcemia
Mildly elevated LFTs
Conditions present PHYSICAL THERAPY AID
Essential (primary) hypertension
Common variable immunodeficiency
Recurrent sinusitis
Immunosuppression due to drug therapy, chronic prednisone
Asthma, moderate persistent
Follows with Dr Valente, maintained on Advair HFA
Sarcoidosis, with chronic pulmonary nodules/calcified lymphadenopathy
Anxiety
Chronic cough
Plan
No oxygen was needed on admission, currently saturating >90% on RA
Not known to be on home O2
Prior history of lung disease is noted including asthma, sarcoidosis, on chronic prednisone
Home regiment is resumed, tolerating
Suspect patient has right lower lobe pneumonia
CXR/CT obtained indicating basilar disease
Other imaging reviewed in past and negative, she has chronic nodules and calcified lymphadenopathy from her sarcoid
Repeat chest x-ray today to evaluate for resolution of pneumonia--reviewed/improving
Transition IV steroids to PO prednisone, taper back to home dose
Continue airway clearance, she notes that her symptoms are improving
Acapella, IS
Sputum culture unable to be obtained
She is on CAP coverage
We reviewed taking mucinex 600 BID and albuterol nebs TID until improved at home, this will be changed as well in her MAR
No prior ECHO results are available for review
She had prior stress testing in 2017 that was low risk
May be beneficial to obtain baseline testing to rule out pulmonary hypertension, this can be done as an outpatient
She otherwise has no cardiac complaints
Will need outpatient pulmonary evaluation in our office for PFTs and 6MWT
Reviewed with patient
Discharge planning otherwise
We will arrange follow-up visit
Diagnostic Data
Chest X-Ray: 09/27/24- 1. Large right middle and lower lobe airspace consolidations which have decreased in size and density since 09/24/2024 (probably right lower and middle lobe pneumonia).
2. Small right parapneumonic pleural effusion.
3. Many calcified mediastinal and bilateral hilar lymph nodes which appear unchanged.
4. Previous extensive bilateral posterior instrumentation in the thoracic and lumbar spine.
5. Previous bilateral posterior instrumentation in the lower cervical spine.
09/24/24- Right basilar consolidative pneumonia. Possible small right pleural fluid as well.
04/11/24- Unremarkable and stable chest
CT Scan: CHEST 02/05/24- 1. Redemonstration of scattered small bilateral pulmonary nodules in a distribution suggestive of sequelae of sarcoidosis, overall minimally progressed from prior exam 01/16/2022.
CHEST 01/16/22- . A few peribronchial pulmonary nodules and calcified mediastinal and bilateral hilar lymph nodes are most compatible with the sequela of sarcoidosis. A 5 mm pulmonary nodule in the right upper lobe has slightly increased compared to
the prior chest CT from 2010. Smaller nodules in the left upper lobe and left lower lobe are unchanged.
2. Suspected gallbladder sludge and/or noncalcified cholelithiasis.
Echo: Nuc Stress 2017- EF >75%, small fixed defect in apical segment consistent with soft tissue attenuation, overall low risk
PFT's:
Reports and relevant images were personally reviewed.
Total time spent on this consultation __51__ minutes which includes review of history, physical exam, medications, laboratory data, personal review of imaging, extensive review of outpatient records, discussion with care team and respiratory therapy.
Subjective Data
-
Date of Service:
Date of Service: September 28, 2024
Chief Complaint: Pulmonary Follow Up
Subjective:
Doing well today, no new complaints
Coughing but less productive
Wants to go home
Objective Data
Data Reviewed
Vital Signs / I&O / Oxygen:
Vital Signs
Temp Pulse Resp BP Pulse Ox
98 F 96 16 147/84 95
09/28/24 07:10 09/28/24 07:31 09/28/24 07:31 09/28/24 07:10 09/28/24 07:31
Intake and Output
09/27/24 09/28/24 09/29/24
06:59 06:59 06:59
Intake Total 2820 / 2820 1020 / 1020
Balance 2820 / 2820 1020 / 1020
SaO2 95
Nasal Cannula flow liters per 2
minute
Physical Exam
General: Comfortable and Other (NAD)
HEENT: Normocephalic, Anicteric and Moist Mucous Membranes
Cardiovascular: S1-S2 and Regular Rhythm
Respiratory: Clear, Non-Labored Respirations and Other (very hoarse cough)
GI: Soft, Non Distended and Non Tender
Neurology: Awake, Alert, Oriented and No Motor Deficits
Skin: Warm, Dry and Good Color
Labs/Micro/Reports
Lab Data
09/26/24 06:59
09/26/24 06:58
Microbiology
09/24/24 11:04 Blood/Venous Blood Culture - Preliminary
No Growth in 72 hours- Final report to follow
09/24/24 11:04 Blood/Venous Blood Culture - Preliminary
No Growth in 72 hours- Final report to follow
--- NOTE | 2024-09-28 11:46 | CON.MD ---
Consultation - Medical
-
patient seen chart reviewed. discussed w dr ackerman and with nursing. the patient is a 68 year old woman admitted for confusion. she was found to have pneumonia and upon reflection is not sure how long she was suffering w it. 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 she admits she had not been necessarily reliable w her meds . she had not been taken immunglobulin (she suffers from immune deficiency syndrome) ' i don't know what happened' and at this point is committed to getting her
medications right. she told me who she sees for each of her illnesses including psychiatry where she sees mariana pittman who has been her prescriber for some years. she reports she was taking klonopin which was being tapered most recently she says
bid or q day cymbalta 60 mg daily she has had spinal fusions and suffers from back pain for which she has also been prescribed flexeril which she is not taking right now and says 'i don't need it right now ' she says as far as back pain at this
moment feels okay. she is not currently depressed. sleep and appetite have been diminished by pneumonia and coughing. she has never been suicidal. at this moment she is not unduly anxious. she is happy to be going home.
past psych hx she has never been hosp . she has had therapy and has a med prescriber at [facility] see above
medical hx see above re curret bibasilar right pneumonia. patient w hx immunoglobulin deficiency, asthma sarcoid hld htn spinal fusions w ongoing back pain.
family hx non contributory
substance abuse denied
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 27 year very painful marriage which ended in divorce. had a wonderful childhood . seven sibs all still alive. her sister is attentive to the
extent she can as she lives in [place]. two kids. the chart says they re estranged. she said they just communicate via text and video and that she is very proud of them.
mse alert ox3 cooperative and pleasant. speech and thought process seem normal. no psychosis mood is euthymic affect generally appropriate no si aver intelligence insight judgment seem ok cognition grossly intact but unclear why she stopped
taking her immunoglobulin.
dx unspecified depression
recommendation patient did not seem confused now. 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 certainly pneumonia /sepsis take their toll and she was on several medications that can contribute to cognitivie issues including flexerial and klonopin.
there is mention in the chart of doxepin which she says she does not take now . she also uses prednisone from time to time which can contribute to cognitive and mood changes. i will let her out pt prescriber who was last seen at [facility] only a month
ago (august 30 ) know about this admit so he can assess her when he sees her next. advised patient o use the minimum of medication that can cause cognitive changes in this case klonopin flexeril particularly. psych signing off patient likely
leaving todayl
[2024-09-28] MEDS: STERILE WATER FOR INJECTION 10 ML IV (12:39)
[2024-09-28] MEDS: MUCINEX 600 MG PO ×2 (12:40→19:21)
[2024-09-28] MEDS: ROCEPHIN 1000 MG IV (12:40)
[2024-09-28 13:45] VITALS: BP 150/97; PULSE 104; O2SAT 96
--- NOTE | 2024-09-28 13:49 | W.PN.HOSP.TC ---
Today's Communication/Plan
-
Discharge
Assessment / Plan
Assessment / Plan
68-year-old female with cough confusion
CVS: S1-S2 normal
Chest: Clear to auscultation
Abdomen: Soft, NT / Bowel sounds present
Extremities: No edema, normal pulses
# Sepsis secondary to right basilar pneumonia
Patient was also hypotensive transiently possibly shock from sepsis, responsive to fluids.
Sputum culture and blood culture pending
Ceftriaxone doxycycline
Mucinex
Oxygen as needed - Not on it now
Home oxygen evaluation noted. Patient does need home oxygen.
Influenza negative. COVID screen negative
Pulmonary evaluation appreciated.
# TME secondary to above. Head CT with no acute changes. Back to baseline
# History of cough variant asthma/chronic bronchitis-Continue DuoNebs
# Anemia
# Thrombocytosis-likely secondary to infection. Needs hematology follow up as OP
# Sarcoidosis-on prednisone as outpatient-continue
# Essential hypertension-on hydrochlorothiazide as outpatient
# Mitral valve prolapse
# Anxiety depression-/-continue duloxetine, doxepin and Klonopin restarted
# Common variable immunodeficiency-gets IgG injections. She stated that she forgot to take it in the past month. Aware that she needs to take it regularly. She called [facility].
# Chronic back pain-L3-4 hemilaminectomy and diskectomy. History of C2-C7 fusion- On Tramadol
# Hypoalbuminemia
# Lifelong non-smoker
# DVT prophylaxis-subcutaneous heparin
# Full code
Spoke to power of immigration attorney on 09/27/2024 and updated.
D/W RN
D/W Pulm
Discussed with psychiatry
Decreased Klonopin to twice daily dosing.
More than 30 minutes spent in discharge including
Final examination of the patient
Summarizing hospital stay
Instructions for continuing care to all relevant caregivers
Preparation of discharge records, prescriptions, and referral forms
Total time spent (in minutes): 38 min
Anticipated Discharge: Today
Subjective/Interval History
-
Date of Service: September 28, 2024
Objective Data
-
Vital Signs:
Vital Signs
Temp Pulse Resp BP Pulse Ox
98 F 96 16 147/84 95
09/28/24 07:10 09/28/24 07:31 09/28/24 07:31 09/28/24 07:10 09/28/24 07:31
I&O
09/27/24 09/28/24 09/29/24
06:59 06:59 06:59
Intake Total 2820 / 2820 1020 / 1020
Balance 2820 / 2820 1020 / 1020
[2024-09-28 13:59] VITALS: BP 150/97
--- NOTE | 2024-09-28 14:18 | W.DS.TRANS ---
Addendum entered and electronically signed by Jose Keenan MD 09/28/24 15:23:
Dictation- [id number]
Original Note:
DC Summary - [employer]
-
Discharge Instructions:
Discharge Diagnosis/Procedures Right lower lobe pneumonia
Anemia
Common variable immunodeficiency
Hypertension
Chronic prednisone use
Asthma
Sarcoidosis
Anxiety
Mitral valve prolapse
Chronic back pain
Diet As tolerated
Activity As tolerated
Driving Restrictions As prior to admission
Blood Work CBC, BMP 1 week
Others Tests chest X ray in 6 weeks
Other Services VN
Instructions:
Stand-Alone Forms:
Changes to Home Medications: Yes
Discharge Medications:
DC Medications w/original date entered in [employer]
duloxetine 60 mg capsule,delayed release 60 mg PO BID Mental Health/Anxiety 06/12/20
fluticasone furoate 200 mcg/actuation blister powder for inhalation (Arnuity Ellipta) 1 puff IH R DAILY ASTHMA 06/12/20
cholecalciferol (vitamin D3) 25 mcg (1,000 unit) tablet 25 mcg PO DAILY Supplement 09/24/24
denosumab 60 mg/mL subcutaneous syringe (Prolia) 60 mg SC [id number] 09/24/24
fluticasone propionate 115 mcg-salmeterol 21 mcg/actuation HFA inhaler (Advair HFA) 2 puff inhalation R BID Lung/Breathing Issues 09/24/24
hydrochlorothiazide 25 mg tablet 25 mg PO DAILY Blood Pressure 09/24/24
benzonatate 100 mg capsule 200 mg (2 x 100 mg) PO TIDPRN PRN Cough #30 caps 09/28/24
cefuroxime axetil 500 mg tablet 500 mg PO BID Infection #7 tabs 09/28/24
clonazepam 0.5 mg tablet 0.5 mg PO BID Mental Health/Anxiety #0 tabs 09/28/24
doxycycline hyclate 100 mg capsule 100 mg PO BID Infection #7 caps 09/28/24
guaifenesin 600 mg tablet, extended release 12 hr 600 mg PO Q12 Lung/breathing issues #20 tabs 09/28/24
levalbuterol HCl 1.25 mg/3 mL solution for nebulization 1.25 mg (3 mL) inhalation TID Lung/breathing issues #0 mL 09/28/24
prednisone 10 mg tablet See Rx Instructions .Route .COMPLEX Lung/breathing issues #30 tabs 09/28/24
prednisone 5 mg tablet 5 mg PO DAILY inflammation #0 tabs 09/28/24
Home Medication Changes
new
prednisone 10 mg tablet See Rx Instructions .Route .COMPLEX Lung/breathing issues #30 tabs 09/28/24
doxycycline hyclate 100 mg capsule 100 mg PO BID Infection #7 caps 09/28/24
guaifenesin 600 mg tablet, extended release 12 hr 600 mg PO Q12 Lung/breathing issues #20 tabs 09/28/24
levalbuterol HCl 1.25 mg/3 mL solution for nebulization 1.25 mg (3 mL) inhalation TID Lung/breathing issues #0 mL 09/28/24
benzonatate 100 mg capsule 200 mg (2 x 100 mg) PO TIDPRN PRN Cough #30 caps 09/28/24
cefuroxime axetil 500 mg tablet 500 mg PO BID Infection #7 tabs 09/28/24
Pending Results: No
[2024-09-28 15:14] VITALS: BP 120/60
[2024-09-28] MEDS: VENTOLIN NEBULES 1.25 MG INH ×2 (15:18→19:44)
--- NOTE | 2024-09-28 17:18 | CM ---
Addendum entered by Nessa La 09/29/24 09:22:
Pt did not go home last evening due to no ability to pay for w/c van. She came into the hospital via 911 and does not have her wallet with her.
CM called Marylu [facility] to discuss - pt has agreed to call [facility] when she gets home to provide credit card for payment of w/c van transport.
Plan: Discharge to home via w/c van with cost of $115; Pt to call [phone] with payment after she get home. Referred to [facility] per pt request.
Original Note:
Pt cleared for discharge to home today. Continues to deny needs for discharge.
Pt requests w/c van transport to home.
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
IMM reviewed with patient; she declined signing, gave verbal consent.
Plan: Discharge to home with no needs. W/C van transport to be scheduled.
[2024-09-28] MEDS: CEFTIN 500 MG PO (19:20)
[2024-09-28 23:21] VITALS: BP 129/82
--- NOTE | 2024-09-29 05:59 | DOWNTIME ---
There was a [employer] Downtime on 09/29/2024 from 0200 to 09/30/2023 at 0318 . Downtime documentation of patient's care, including medication administrations, has been reconciled in the electronic record per guidelines. Refer to the
patient's paper chart under the miscellaneous tab to see printed paper medication records and downtime forms.
[2024-09-29] MEDS: DELTASONE 40 MG PO (07:26)
[2024-09-29] MEDS: CYMBALTA DELAYED RELEASE 60 MG PO (07:26)
[2024-09-29] MEDS: CEFTIN 500 MG PO (07:26)
[2024-09-29] MEDS: VITAMIN D3 (cholecalciferol) 25 MCG PO (07:26)
[2024-09-29] MEDS: VIBRAMYCIN 100 MG PO (07:26)
[2024-09-29] MEDS: MUCINEX 600 MG PO (07:26)
[2024-09-29] MEDS: KLONOPIN 0.5 MG PO (07:27)
[2024-09-29] MEDS: HEPARIN 5000 UNITS SC (07:27)
[2024-09-29] MEDS: VENTOLIN NEBULES 1.25 MG INH ×2 (07:40→13:51)
[2024-09-29] MEDS: ADVAIR HFA 115/21 MCG INHALER 2 PUFF INH (07:41)
[2024-09-29 07:54] VITALS: BP 157/91
--- NOTE | 2024-09-29 10:47 | VNURNOTE ---
Home Health Liaison met with patient at bedside to discuss [facility] nurse/therapy, visits, schedule and homebound status. Patient is agreeable and understands that visits at home will be 2-3 x per week to assess and teach medical management. Patient is
aware that [facility] will contact them for start of care in 1-2 days after discharge from .
[facility] referral completed in [facility].
--- NOTE | 2024-09-29 14:48 | W.PN.UPDATE ---
Update Note
Progress Note Update
Patient could not leave yesterday because of transportation issues
Feeling better
CVS: S1-S2 normal
Chest: CTA B/L
Abdomen: Soft, NT / Bowel sounds present
Extremities: No edema, normal pulses
METAL GRINDER: Non focal exam
Continue antibiotics and proceed with planned discharge.
She will contact Dr. Andrews's office and also PCP.
Discussed with case management
[2024-09-29 15:20] VITALS: BP 120/84
== END 2024-09-29 16:24 | disposition home health service (06) | DRG 871 ==
LOC: 3 WEST ACU 12:38
PROVIDERS: Internal Medicine; ADMITTING PHYSICIAN Hospitalist; ATTENDING PHYSICIAN Hospitalist; CONSULT PHYSICIAN Internal Medicine; EMERGENCY PHYSICIAN Student in an Organized Health Care Education/Training Program; FAMILY PHYSICIAN Internal Medicine; OTHER PHYSICIAN Psychiatry & Neurology Psychiatry
DX: A41.9 Sepsis, unspecified organism (principal); G92.8 Other toxic encephalopathy; J18.9 Pneumonia, unspecified organism; J45.41 Moderate persistent asthma with (acute) exacerbation; D83.9 Common variable immunodeficiency, unspecified; D80.1 Nonfamilial hypogammaglobulinemia; D84.821 Immunodeficiency due to drugs; D64.9 Anemia, unspecified; D75.839 Thrombocytosis, unspecified; D86.9 Sarcoidosis, unspecified; I10 Essential (primary) hypertension; I34.1 Nonrheumatic mitral (valve) prolapse; G89.29 Other chronic pain; E88.09 Other disorders of plasma-protein metabolism, not elsewhere classified; F41.9 Anxiety disorder, unspecified; Z88.1 Allergy status to other antibiotic agents; Z88.6 Allergy status to analgesic agent; Z88.2 Allergy status to sulfonamides; Z11.52 Encounter for screening for COVID-19; Z79.899 Other long term (current) drug therapy; M81.0 Age-related osteoporosis without current pathological fracture; Z79.52 Long term (current) use of systemic steroids; E78.00 Pure hypercholesterolemia, unspecified; E83.51 Hypocalcemia; F32.A Depression, unspecified; J32.9 Chronic sinusitis, unspecified
CPT/HCPCS: 70450; 71046; 80048; 80053; 81003; 81015; 82607; 82728; 83540; 83550; 83605; 83735; 85025; 85027; 87040; 87502; 87811; 93005; 93306; 94640; 94760; 96374; 97163; 97167; 99285

== ENCOUNTER → 2024-10-04 18:05 | Outpatient (REF) | payer MEDICARE, SELFPAY ==
[2024-10-04 18:28] LABS: Hematocrit 38.4 % (37.0-47.0); Mean Corp Hgb Conc. 31.3 g/dL (33.0-37.0); Mean Corpuscular Hgb 27.1 pg (27.0-31.0); Mean Corpuscular Volume 86.9 fL (81.0-99.0); Mean Platelet Volume 8.5 fL (7.4-10.4); Platelet Count 743 10^3/uL (130-400); Red Blood Cell Count 4.42 10^6/uL (4.20-5.40); Red Cell Dist. Width 16.2 % (11.5-14.5)
[2024-10-04 18:30] LABS: Blood Urea Nitrogen 18 mg/dl (7-17); Calcium 9.9 mg/dl (8.4-10.2); Carbon Dioxide 26 mmol/L (22-30); Chloride 97 mmol/L (98-107); Glucose 114 mg/dl (70-99); Potassium 5.3 mmol/L (3.5-5.1); Sodium 135 mmol/L (135-145); eGFR > 60.00
== END ==
LOC: CLAB 18:05
PROVIDERS: ATTENDING PHYSICIAN Internal Medicine
DX: J18.9 Pneumonia, unspecified organism (principal); D86.9 Sarcoidosis, unspecified
CPT/HCPCS: 36415; 80048; 85027

== ENCOUNTER → 2024-10-13 09:40 | Outpatient (REF) | payer MEDICARE, SELFPAY ==
[2024-10-13 18:15] LABS: ALT (SGPT) 22 U/L (0-35); AST (SGOT) 22 U/L (14-36); Albumin 3.8 g/dl (3.5-5.0); Alkaline Phosphatase 80 U/L (38-126); Blood Urea Nitrogen 17 mg/dl (7-17); Calcium 9.4 mg/dl (8.4-10.2); Carbon Dioxide 31 mmol/L (22-30); Chloride 93 mmol/L (98-107); Glucose 62 mg/dl (70-99); HDL Cholesterol 95 mg/dl; LDL Cholesterol, Calculated 98 mg/dl; Potassium 3.3 mmol/L (3.5-5.1); Sodium 135 mmol/L (135-145); Total Bilirubin 0.6 mg/dl (0.2-1.3); Total Cholesterol 211 mg/dl (50-199); Total Protein 6.2 g/dl (6.3-8.2); Triglyceride 94 mg/dl (10-149); Very Low Density Lipoprotein 18 mg/dl (0-30); eGFR > 60.00
[2024-10-13 18:31] LABS: Free T4 1.26 ng/dl (0.78-2.19)
[2024-10-13 18:37] LABS: % Basophils 0.4 % (0-2); % Eosinophils 3.1 % (0-6); % Immature Granulocytes 0.8 % (0-0.5); % Lymphocytes 21.6 % (20.5-51.1); % Monocytes 9.9 % (1.7-9.3); % Neutrophils 64.2 % (42.2-75.2); Absolute Eosinophils 0.3 10^3/uL (0-0.7); Absolute Immature Granulocytes 0.1 10^3/uL (0-0.05); Absolute Lymphocytes 2.2 10^3/uL (1.2-3.4); Absolute Neutrophils 6.5 10^3/uL (1.4-6.5); Hematocrit 34.9 % (37.0-47.0); Hemoglobin 10.7 g/dL (12.0-16.0); Mean Corp Hgb Conc. 30.7 g/dL (33.0-37.0); Mean Corpuscular Hgb 26.6 pg (27.0-31.0); Mean Corpuscular Volume 86.8 fL (81.0-99.0); Mean Platelet Volume 9.1 fL (7.4-10.4); Nucleated Red Blood Cells % 0 %; Platelet Count 448 10^3/uL (130-400); Red Blood Cell Count 4.02 10^6/uL (4.20-5.40); Red Cell Dist. Width 16.3 % (11.5-14.5); White Blood Cell Count 10.2 10^3/uL (4.8-10.8)
[2024-10-13 18:45] LABS: TSH 2.63 uIU/ml (0.47-4.68)
== END ==
LOC: CLAB 09:40
PROVIDERS: ATTENDING PHYSICIAN Internal Medicine
DX: A41.9 Sepsis, unspecified organism (principal); D64.9 Anemia, unspecified; I10 Essential (primary) hypertension
CPT/HCPCS: 36415; 80053; 80061; 84439; 84443; 85025

== ENCOUNTER → 2024-11-21 10:15 | Outpatient (REF) | payer MEDICARE, SELFPAY ==
[2024-11-21 15:27] LABS: Blood Urea Nitrogen 29 mg/dl (7-17); Calcium 10.1 mg/dl (8.4-10.2); Carbon Dioxide 32 mmol/L (22-30); Chloride 99 mmol/L (98-107); Glucose 82 mg/dl (70-99); eGFR > 60.00
[2024-11-21 15:48] LABS: % Basophils 0.8 % (0-2); % Eosinophils 3.8 % (0-6); % Immature Granulocytes 0.5 % (0-0.5); % Lymphocytes 25.9 % (20.5-51.1); % Monocytes 10.2 % (1.7-9.3); % Neutrophils 58.8 % (42.2-75.2); Absolute Basophils 0.1 10^3/uL (0-0.2); Absolute Eosinophils 0.4 10^3/uL (0-0.7); Absolute Immature Granulocytes 0.1 10^3/uL (0-0.05); Absolute Lymphocytes 2.5 10^3/uL (1.2-3.4); Absolute Neutrophils 5.7 10^3/uL (1.4-6.5); Hematocrit 35.6 % (37.0-47.0); Hemoglobin 11.3 g/dL (12.0-16.0); Mean Corp Hgb Conc. 31.7 g/dL (33.0-37.0); Mean Corpuscular Hgb 26.5 pg (27.0-31.0); Mean Corpuscular Volume 83.6 fL (81.0-99.0); Mean Platelet Volume 9.2 fL (7.4-10.4); Nucleated Red Blood Cells % 0 %; Platelet Count 462 10^3/uL (130-400); Red Blood Cell Count 4.26 10^6/uL (4.20-5.40); Red Cell Dist. Width 15.2 % (11.5-14.5); White Blood Cell Count 9.8 10^3/uL (4.8-10.8)
[2024-11-21 16:36] LABS: Sodium 138 mmol/L (135-145)
== END ==
LOC: CLAB 10:15
PROVIDERS: ATTENDING PHYSICIAN Internal Medicine
DX: G92.8 Other toxic encephalopathy (principal); D64.9 Anemia, unspecified; A41.9 Sepsis, unspecified organism; J18.9 Pneumonia, unspecified organism
CPT/HCPCS: 36415; 80048; 85025

== ENCOUNTER → 2025-01-24 11:19 | Outpatient (REF) | payer MEDICARE, SELFPAY | LOC: HWRAD 11:19 | PROVIDERS: ATTENDING PHYSICIAN Student in an Organized Health Care Education/Training Program; FAMILY PHYSICIAN Internal Medicine | DX: M25.511 Pain in right shoulder (principal) | CPT/HCPCS: 73200 ==

== ENCOUNTER → 2025-02-27 09:22 | Outpatient (REF) | payer MEDICARE, SELFPAY | LOC: RAD 09:22 | PROVIDERS: ATTENDING PHYSICIAN Nurse Practitioner Adult Health; FAMILY PHYSICIAN Internal Medicine | DX: R91.1 Solitary pulmonary nodule (principal) | CPT/HCPCS: 71250 ==

== ENCOUNTER → 2025-03-24 11:33 | Outpatient (REF) | payer MEDICARE, SELFPAY | LOC: PAVMRI 11:33 | PROVIDERS: ATTENDING PHYSICIAN Student in an Organized Health Care Education/Training Program; FAMILY PHYSICIAN Internal Medicine | DX: M25.511 Pain in right shoulder (principal) | CPT/HCPCS: 73221 ==

== ENCOUNTER → 2025-04-01 13:48 | Outpatient (REF) | payer MEDICARE, SELFPAY | LOC: WDC 13:48 | PROVIDERS: ATTENDING PHYSICIAN Internal Medicine | DX: Z12.31 Encounter for screening mammogram for malignant neoplasm of breast (principal) | CPT/HCPCS: 77063; 77067 ==